=== PATIENT | male | born 1990 ===

== ENCOUNTER 2022-05-28 19:56 | Emergency (ER) | payer MEDICARE ==
[~2022-05-28] VITALS: Ht 182.9 cm; Wt 77.3 kg
[2022-05-28] MEDS ORDERED: METHOCARBAMOL 500 MG TABLET PO ONE (23:00)
[2022-05-28] MEDS ORDERED: KETOROLAC TROMETHAMINE 60 MG/2 ML VIAL IM ONE (23:00)
[2022-05-28 23:17] VITALS: BP 121/63
== END 2022-05-28 23:19 | disposition home or self-care (01) ==
LOC: EMS 19:59
DX: S39.012A Strain of muscle, fascia and tendon of lower back, initial encounter (principal); M79.18 Myalgia, other site; J18.9 Pneumonia, unspecified organism; X58.XXXA Exposure to other specified factors, initial encounter; Y93.89 Activity, other specified; Y92.89 Other specified places as the place of occurrence of the external cause; Y99.8 Other external cause status
CPT/HCPCS: 99283; 96372; J1885